=== PATIENT | female | born 1960 | race African-American/Black ===

== ENCOUNTER 2016-08-30 09:42 | Emergency (ER) | payer MEDICAID ==
[~2016-08-30] VITALS: Ht 165.1 cm; Wt 96.6 kg
[2016-08-30 09:50] VITALS: BP 138/96
[2016-08-30] MEDS ORDERED: HYDROcodone-ACET 10/325MG TAB PO ONE (11:30)
== END 2016-08-30 11:45 | disposition home or self-care (01) ==
LOC: ER 09:42
DX: G89.29 Other chronic pain (principal); M54.9 Dorsalgia, unspecified; E11.9 Type 2 diabetes mellitus without complications; E78.5 Hyperlipidemia, unspecified; I10 Essential (primary) hypertension; Z76.0 Encounter for issue of repeat prescription
CPT/HCPCS: 82962